=== PATIENT | male | born 1980 | race Caucasian/White ===

== ENCOUNTER 2016-08-19 16:30 | Inpatient (IN) | payer MEDICAID, OTHER ==
[~2016-08-19] VITALS: Ht 177.8 cm; Wt 108.2 kg
[~2016-08-19 16:30] MED LIST: PARO10TA89 PO; QUET300T2 PO
[2016-08-19] MEDS ORDERED: HALOPERIDOL LACTATE 5 MG/ML VIAL IM ONE (17:00)
[2016-08-19] MEDS ORDERED: LORazepam 2 MG/ML VIAL IM ONE (17:00)
[2016-08-19] MEDS ORDERED: DiphenhydrAMINE HCL 50 MG/ML VIAL IM ONE (17:00)
[2016-08-19 19:41] LABS: BASOPHILS # (AUTO) 0.04 K/uL (0.00-0.20); BASOPHILS % (AUTO) 0.5 % (0.0-2.0); EOSINOPHILS % (AUTO) 2.46 % (1.0-6.0); HEMATOCRIT 37.5 % (41-53); HEMOGLOBIN 12.6 g/dL (13.5-17.5); LYMPHOCYTES % (AUTO) 37.4 % (22.0-44.0); MEAN CORPUSCULAR HEMOGLOBIN 28.8 pg (26.0-34.0); MEAN CORPUSCULAR HGB CONC 33.6 G/dL (31.0-37.0); MEAN CORPUSCULAR VOLUME 86 fL (80-100); MONOCYTES # (AUTO) 0.7 K/uL (0.1-1.0); MONOCYTES % (AUTO) 8.4 % (2.0-9.0); NEUTROPHILS # (AUTO) 4.1 K/uL (1.8-7.7); NEUTROPHILS % (AUTO) 51.3 % (40.0-70.0); PLATELET COUNT (AUTO) 341 K/uL (150-450); RED BLOOD CELL COUNT(AUTO) 4.38 MIL/uL (4.50-5.90); RED CELL DISTRIBUTION WIDTH 13.4 % (11.5-14.5)
[2016-08-19 19:53] LABS: ANION GAP 9 mmol/L (8-16); CALCIUM, TOTAL 8.2 mg/dL (8.8-10.5); CARBON DIOXIDE 27 mmol/L (22-29); CHLORIDE 106 mmol/L (98-107); CREATININE 0.91 mg/dL (0.60-1.30); GLOMERULAR FILTR. RATE CALC > 60 mL/min (>60); POTASSIUM 3.4 mmol/L (3.5-5.1); SODIUM SERUM 142 mmol/L (136-145); UREA NITROGEN, BLOOD 12 mg/dL (7-18)
[2016-08-19 20:05] LABS: ADD UA MICROSCOPIC NO; APPEARANCE,URINE CLEAR (CLEAR); GLUCOSE, URINE (UA) NEGATIVE (NEGATIVE); KETONES,URINE NEGATIVE (NEGATIVE); LEUKOCYTE ESTERASE ,URINE NEGATIVE (NEGATIVE); OCCULT BLOOD,URINE NEGATIVE (NEGATIVE); PROTEIN,URINE NEGATIVE (NEGATIVE)
[2016-08-19 20:15] LABS: ALANINE AMINOTRANSFERASE 25 U/L (12-78); ALBUMIN 3.5 g/dL (3.4-5.0); ASPARTATE AMINOTRANSFERASE 16 U/L (15-37); BILIRUBIN,TOTAL 0.2 mg/dL (0.1-1.0)
[2016-08-19 20:17] LABS: CHOL/HDL RATIO 5.1 (4.2-7.3)
[2016-08-19] MEDS ORDERED: POTASSIUM CHLORIDE 10% 40 MEQ/30 ML LIQUID UDCUP PO ONE (21:00)
[2016-08-19 22:21] VITALS: BP 127/84
[2016-08-20] MEDS ORDERED: ONDANSETRON HCL 4 MG TABLET PO PRN (07:45)
[2016-08-20] MEDS ORDERED: PETROLATUM,WHITE 71 GM JELLY TP PRN (07:45)
[2016-08-20] MEDS ORDERED: ALBUTEROL SULFATE HFA 90 MCG/PUFF 8 GM INHALER IH PRN (07:45)
[2016-08-20] MEDS ORDERED: CloNIDine HCL 0.1 MG TABLET PO PRN (07:45)
[2016-08-20] MEDS ORDERED: MAGNESIUM HYDROXIDE SUSPENSION 30 ML UDCUP PO PRN (07:45)
[2016-08-20] MEDS ORDERED: MAG HYDROX/AL HYDROX/SIMETH ES 30 ML SUSPENSION UDCUP PO PRN (07:45)
[2016-08-20] MEDS ORDERED: BACITRACIN 28.4 GM OINTMENT TP PRN (07:45)
[2016-08-20] MEDS ORDERED: ACETAMINOPHEN 325 MG TABLET PO PRN (07:45)
[2016-08-20] MEDS ORDERED: BENZOCAINE/MENTHOL LOZENGE MM PRN (07:45)
[2016-08-20] MEDS ORDERED: LOPERAMIDE HCL 2 MG CAPSULE PO PRN (07:45)
[2016-08-20] MEDS ORDERED: IBUPROFEN 600 MG TABLET PO PRN (07:45)
[2016-08-20 08:30] VITALS: BP 134/79
[2016-08-20] MEDS: FISH OIL/OMEGA-3 FATTY ACIDS 500 MG CAPSULE PO SCH (09:00)
[2016-08-20] MEDS: PARoxetine HCL 20 MG TABLET PO SCH (11:56)
[2016-08-20 16:54] VITALS: BP 109/76
[2016-08-20 20:24] VITALS: BP 120/78
[2016-08-20] MEDS: QUEtiapine FUMARATE 300 MG TABLET PO SCH (20:24)
[2016-08-20 21:20] VITALS: BP 124/82
[2016-08-21 06:14] VITALS: BP 133/72
[2016-08-21 07:14] LABS: CHOL/HDL RATIO 4.7 (4.2-7.3); POTASSIUM 3.9 mmol/L (3.5-5.1); THYROID STIMULATING HORMONE 2.5 uIU/mL (0.36-3.74)
[2016-08-21] MEDS: FISH OIL/OMEGA-3 FATTY ACIDS 500 MG CAPSULE PO SCH (09:16)
[2016-08-21] MEDS: PARoxetine HCL 20 MG TABLET PO SCH (09:17)
[2016-08-21 16:00] VITALS: BP 128/79
[2016-08-21] MEDS: QUEtiapine FUMARATE 300 MG TABLET PO SCH (20:16)
[2016-08-21] MEDS: LORazepam 2 MG TABLET PO PRN (20:20)
[2016-08-22 08:00] VITALS: BP 127/65
[2016-08-22] MEDS: FISH OIL/OMEGA-3 FATTY ACIDS 500 MG CAPSULE PO SCH (09:18)
[2016-08-22] MEDS: PARoxetine HCL 20 MG TABLET PO SCH (09:18)
[2016-08-22 16:38] VITALS: BP 132/80
[2016-08-22] MEDS: QUEtiapine FUMARATE 300 MG TABLET PO SCH (20:08)
[2016-08-23] MEDS: ZOLPIDEM TARTRATE 10 MG TABLET PO PRN (02:53)
[2016-08-23 08:20] VITALS: BP 116/71
[2016-08-23] MEDS: PARoxetine HCL 20 MG TABLET PO SCH (09:25)
[2016-08-23] MEDS: FISH OIL/OMEGA-3 FATTY ACIDS 500 MG CAPSULE PO SCH (09:25)
[2016-08-23] MEDS: LORazepam 2 MG TABLET PO PRN ×2 (10:15→18:51)
[2016-08-23 16:00] VITALS: BP 129/75
[2016-08-23] MEDS: QUEtiapine FUMARATE 200 MG TABLET PO SCH (20:09)
[2016-08-24] MEDS: ZOLPIDEM TARTRATE 10 MG TABLET PO PRN (00:21)
[2016-08-24 08:31] VITALS: BP 125/65
[2016-08-24] MEDS ORDERED: FISH OIL/OMEGA-3 FATTY ACIDS 500 MG CAPSULE PO SCH (09:00)
[2016-08-24] MEDS: ATORVASTATIN CALCIUM 20 MG TABLET PO SCH (10:39)
[2016-08-24] MEDS: PARoxetine HCL 20 MG TABLET PO SCH (10:40)
[2016-08-24] MEDS: FISH OIL/OMEGA-3 FATTY ACIDS 500 MG CAPSULE PO SCH (11:29)
[2016-08-24] MEDS: LORazepam 2 MG TABLET PO PRN (16:47)
[2016-08-24] MEDS: HALOPERIDOL 5 MG TABLET PO PRN (16:47)
[2016-08-24 18:25] VITALS: BP 132/80
[2016-08-24] MEDS: DIVALPROEX SODIUM 500 MG DR TABLET PO SCH (20:11)
[2016-08-24] MEDS: QUEtiapine FUMARATE 200 MG TABLET PO SCH (20:12)
[2016-08-25] MEDS: FISH OIL/OMEGA-3 FATTY ACIDS 500 MG CAPSULE PO SCH (08:19)
[2016-08-25] MEDS: PARoxetine HCL 20 MG TABLET PO SCH (08:19)
[2016-08-25] MEDS: ATORVASTATIN CALCIUM 20 MG TABLET PO SCH (08:19)
[2016-08-25] MEDS: DIVALPROEX SODIUM 500 MG DR TABLET PO SCH ×2 (08:19→20:43)
[2016-08-25 08:42] VITALS: BP 117/72
[2016-08-25] MEDS: LORazepam 2 MG TABLET PO PRN (12:09)
[2016-08-25] MEDS: HALOPERIDOL 5 MG TABLET PO PRN (12:09)
[2016-08-25] MEDS: QUEtiapine FUMARATE 200 MG TABLET PO SCH (20:43)
[2016-08-26] MEDS: FISH OIL/OMEGA-3 FATTY ACIDS 500 MG CAPSULE PO SCH (09:10)
[2016-08-26] MEDS: DIVALPROEX SODIUM 500 MG DR TABLET PO SCH ×2 (09:10→20:50)
[2016-08-26] MEDS: ATORVASTATIN CALCIUM 20 MG TABLET PO SCH (09:10)
[2016-08-26] MEDS: PARoxetine HCL 20 MG TABLET PO SCH (09:10)
[2016-08-26 10:02] VITALS: BP 117/82
[2016-08-26 16:34] VITALS: BP 136/68
[2016-08-26] MEDS: HALOPERIDOL 5 MG TABLET PO PRN (17:55)
[2016-08-26] MEDS: LORazepam 2 MG TABLET PO PRN (17:55)
[2016-08-26] MEDS: QUEtiapine FUMARATE 200 MG TABLET PO SCH (20:50)
[2016-08-27] MEDS: ATORVASTATIN CALCIUM 20 MG TABLET PO SCH (08:45)
[2016-08-27] MEDS: FISH OIL/OMEGA-3 FATTY ACIDS 500 MG CAPSULE PO SCH (08:45)
[2016-08-27] MEDS: PARoxetine HCL 20 MG TABLET PO SCH (08:45)
[2016-08-27] MEDS: DIVALPROEX SODIUM 500 MG DR TABLET PO SCH ×2 (08:45→20:01)
[2016-08-27 13:59] VITALS: BP 123/72
[2016-08-27 16:08] VITALS: BP 101/59
[2016-08-27] MEDS: QUEtiapine FUMARATE 200 MG TABLET PO SCH (20:01)
[2016-08-27] MEDS: LORazepam 2 MG TABLET PO PRN (20:01)
[2016-08-27] MEDS: ZOLPIDEM TARTRATE 10 MG TABLET PO PRN (21:01)
[2016-08-27] MEDS: HALOPERIDOL 5 MG TABLET PO PRN (21:02)
[2016-08-28] MEDS: FISH OIL/OMEGA-3 FATTY ACIDS 500 MG CAPSULE PO SCH (08:12)
[2016-08-28] MEDS: PARoxetine HCL 20 MG TABLET PO SCH (08:12)
[2016-08-28] MEDS: ATORVASTATIN CALCIUM 20 MG TABLET PO SCH (08:12)
[2016-08-28] MEDS: DIVALPROEX SODIUM 500 MG DR TABLET PO SCH (08:12)
[2016-08-28] MEDS ORDERED: DIVA500T35 PO (11:01)
[2016-08-28] MEDS ORDERED: QUET200T PO (11:02)
[2016-08-28] MEDS ORDERED: ATOR20TA86 PO (11:04)
[2016-08-28] MEDS ORDERED: OMEG100032 PO (11:04)
== END 2016-08-28 13:30 | disposition home or self-care (01) | DRG 750 ==
LOC: EMS 16:33 → 3EI 21:40 → 3EC 08-22 15:39
DX: F25.1 Schizoaffective disorder, depressive type (principal); E83.51 Hypocalcemia; R45.851 Suicidal ideations; F79 Unspecified intellectual disabilities; F15.10 Other stimulant abuse, uncomplicated; F12.10 Cannabis abuse, uncomplicated; E87.6 Hypokalemia; E78.5 Hyperlipidemia, unspecified; E66.9 Obesity, unspecified; Z72.0 Tobacco use; Z71.6 Tobacco abuse counseling; Z71.51 Drug abuse counseling and surveillance of drug abuser; Z79.899 Other long term (current) drug therapy; Z68.34 Body mass index [BMI] 34.0-34.9, adult
CPT/HCPCS: 82306; 84132; 84443; 96372; 99285; G0480; J1200; J1630; J2060